=== PATIENT | male | born 1995 | race Caucasian/White ===

== ENCOUNTER 2025-10-31 17:36 | Emergency (ER) | payer OTHER, SELFPAY ==
--- NOTE | ~2025-10-31 | CT_ITS ---
EXAMINATION: CT abdomen pelvis wo con DATE: 10/31/2025 20:58 INDICATION: Kidney stone. TECHNIQUE: Computed tomography (CT) of the abdomen and pelvis was performed without intravenous contrast. Automated exposure control and iterative reconstruction technique were employed. The dose-length product was 190.28 mGy-cm. COMPARISON: None. FINDINGS: The visualized portions of the lung bases demonstrate mild atelectasis in right middle lobe. No pleural effusion. The heart size is normal. No pericardial effusion. There is a 13 mm mass in right hepatic lobe. The gallbladder, spleen, pancreas, adrenal glands, and kidneys are normal. There is no urolithiasis. There are no dilated loops of bowel. The appendix is not visualized. There is trace pelvic ascites. There is mild thoracic and lumbar spondylosis. IMPRESSION: 1. No urolithiasis. 2. 13 mm liver mass, likely benign given the patient's age. Consider abdomen MRI without and with contrast. Reviewed, dictated and finalized at location E. PRODUCTION MANAGER IMPRESSION: 1. No urolithiasis. 2. 13 mm liver mass, likely benign given the patient's age. Consider abdomen MR I without and with contrast.
[2025-10-31 17:37] VITALS: BP 116/71; PULSE 61; RESP 16; TEMP 36.6; O2SAT 100
[2025-10-31 18:12] LABS: Hematocrit 41.8 % (42.0-52.0); Hemoglobin 14.2 g/dL (14.0-18.0); Immature Granulocyte Percent A 0.2 % (0-0.5); Lymphocytes Absolute Auto 1.25 K/mm3 (0.9-3.2); Mean Corpuscular HGB Conc 34.0 g/dl (32-36); Mean Corpuscular Hemoglobin 31.8 pg (26-34); Mean Corpuscular Volume 93.5 fl (80-100); Nucleated Red Blood Cells Absolute Auto 0.000 K/mm3 (0.0-0.012); Nucleated Red Blood Cells Perc 0.0 % (0.0-0.2); Platelet Count Result 203 k/mm3 (150-375); Red Blood Count 4.47 M/mm3 (4.6-6.20); White Blood Count 4.5 K/mm3 (4.5-10.0)
[2025-10-31 18:37] LABS: Alanine Aminotransferase 19 U/L (6-50); Albumin Level 4.4 g/dL (3.5-5.1); Alkaline Phosphatase 62 U/L (38-126); Anion Gap 6 mmol/L (4-12); Aspartate Amino Transferase 25 U/L (17-59); Bilirubin,Total 0.4 mg/dL (0.2-1.3); Blood Urea Nitrogen 10 mg/dL (9-20); Calcium 8.9 mg/dL (8.4-10.2); Carbon Dioxide 27 mmol/L (22-30); Chloride 105 mmol/L (98-107); Estimated CRCL calculation 94 ml/min; Estimated Glomerular Filt Rate > 60; Glucose 75 mg/dL (65-110); Potassium 4.1 mmol/L (3.4-5.0); Sodium 138 mmol/L (137-145); Total Protein 7.3 g/dL (6.3-8.2)
[2025-10-31 18:47] LABS: Add Urine Microscopic? YES; Appearance Urine Clear (Clear); Glucose Urine UA Negative (Negative); Leukocyte Esterase Ur Negative LEU/UL (Negative); Nitrate Urine Negative (Negative); Specific Grav Ur 1.032 (1.001-1.035)
--- NOTE | 2025-10-31 18:47 | PC.NURSE ---
Pt found vaping in room. Room smells of marijuana.
[2025-10-31 18:48] LABS: Need Manual Microscopic Reviewed
[2025-10-31 18:50] LABS: Non Pathogenic Casts 0-2
--- NOTE | 2025-10-31 20:29 | ED_ITS ---
HPI - Male Genitourinary General Chief complaint: Urogenital-Male Stated complaint: hematuria, body aches, dry heaving Time Seen by Provider: 10/31/25 19:26 History of Present Illness HPI Narrative: Patient is a 30 year male who presents to the ER with a 4 day history of bilateral back pain, lower abdominal pain (pulling sensation), nausea, dry heaving, diarrhea and hematuria. He reports on October 27 he noticed blood in his urine. Since then patient reports he started experiencing the other symptoms listed above. Patient denies any recent fevers, penile discharge, headache, congestion. He denies any history kidney stones, recent alcohol use, drug use. Patient reports he does not drink much water and drinks a lot of soda. He denies any other medical history relevant to this ER visit. Related Data Allergies Allergy/AdvReac Type Severity Reaction Status Date / Time No Known Allergies Allergy Verified 10/31/25 17:58 Review of Systems 2 Review of Systems: All systems reviewed & are unremarkable except as noted in HPI and below Exam 2 Narrative: GENERAL: Well appearing, well-nourished, non-toxic, in no acute distress. HEAD: Normocephalic, atraumatic. NECK: Supple. No adenopathy, no masses. RESPIRATORY: Airway patent, respirations nonlabored. Clear to auscultation bilaterally, no rales, rhonchi, wheezing. CARDIOVASCULAR: Regular rate and rhythm without murmurs, rubs, or gallops. Peripheral pulses 2+ and equal bilaterally. Positive CVA tenderness left side ABDOMINAL: Soft, nontender, nondistended, no hepatosplenomegaly. Normoactive BS. MUSCULOSKELETAL: Moves all extremities. Strength/ROM intact without gross deformities. SKIN: Warm, dry, normal color. No rashes. NEURO: A&O X3. Speech clear. Cranial nerves II-XII intact. No ataxic movements. PSYCHIATRIC: Appropriate mood and affect. Normal interaction. Course Vital Signs Vital signs: Vital Signs Temperature 36.6 C 10/31/25 17:37 Pulse Rate 61 10/31/25 17:37 Respiratory Rate 16 10/31/25 17:37 Blood Pressure 116/71 10/31/25 17:37 Pulse Oximetry 100 10/31/25 17:37 Oxygen Delivery Room Air 10/31/25 17:37 Temperature 36.6 C 10/31/25 17:37 Pulse Rate 72 10/31/25 22:53 Respiratory Rate 18 10/31/25 22:53 Blood Pressure 122/78 10/31/25 22:53 Pulse Oximetry 100 10/31/25 22:53 Oxygen Delivery Room Air 10/31/25 17:37 [facility] Narrative Medical decision making narrative: Patient is a 30 year male who presents to the ER with a 4 day history of bilateral back pain, lower abdominal pain (pulling sensation), nausea, dry heaving, diarrhea and hematuria. He reports on October 27 he noticed blood in his urine. Since then patient reports he started experiencing the other symptoms listed above. Patient denies any recent fevers, penile discharge, headache, congestion. He denies any history kidney stones, recent alcohol use, drug use. Patient reports he does not drink much water and drinks a lot of soda. He denies any other medical history relevant to this ER visit. Labs Ordered: CBC, CMP, UA, UDS Imaging Ordered: CT abdomen pelvis Medications Ordered: morphine 4 mg IV, 1 L normal saline IV bolus, Toradol 15mg IV Results: patient's CT scan indicates accounting for mild respiratory artifact, no nephrolithiasis or hydronephrosis. No definite ureteral stones. The bladder is predominantly decompressed without evidence for bladder stones or bladder wall thickening. No bowel obstruction. No free intraperitoneal fluid or pneumoperitoneum. The appendix is not clearly delineated. The unenhanced liver, gallbladder, pancreas, spleen and adrenal glands are unremarkable. Diagnosis: renal colic, hematuria Consults: urology (outpatient) Patient Education/Shared MDM: Results of lab work and imaging shared with patient. He endorses improvement of symptoms following medication administration. Patient strongly advised to maintain hydration status upon discharge and follow-up with his PCP as soon as possible. If his hematuria returns he should follow-up with Urology. He will not be discharged home with any new prescriptions, but advised to take Tylenol and/or Ibuprofen for pain control. Strict return precautions provided. Patient verbalized understanding and is in agreement with plan. Vital signs stable at time of discharge. All questions answered. Differential Diagnosis Differential Diagnosis: Kidney stone, constipation, hematuria, UTI Lab Data [facility] Lab Attestation statement: I personally reviewed the patient's lab results. 10/31/25 18:01 10/31/25 18:01 Labs: Lab Results 10/31/25 10/31/25 Range/Units 18:00 18:01 WBC 4.5 (4.5-10.0) K/mm3 RBC 4.47 L (4.6-6.20) M/mm3 Hgb 14.2 (14.0-18.0) g/dL Hct 41.8 L (42.0-52.0) % MCV 93.5 (80-100) fl MCH 31.8 (26-34) pg MCHC 34.0 (32-36) g/dl RDW 13.2 (11.5-14.5) % Plt Count 203 (150-375) k/mm3 MPV 9.9 (7.4-10.4) fl Immature Gran % (Auto) 0.2 (0-0.5) % Neut % (Auto) 55.7 (45.5-73.1) % Lymph % (Auto) 28.0 (18.3-44.2) % Young % (Auto) 15.0 H (2.6-8.5) % Eos % (Auto) 0.7 (0-4.4) % Baso % (Auto) 0.4 (0.2-1.2) % Lymph # (Auto) 1.25 (0.9-3.2) K/mm3 Young # (Auto) 0.7 H (0.1-0.6) K/mm3 Eos # (Auto) 0.0 (0-0.3) K/mm3 Baso # (Auto) 0.0 (0.0-0.1) K/mm3 Abs Immat Gran (auto) 0.01 (0.00-0.031) K/mm3 Absolute Neuts (auto) 2.5 (1.3-6.7) K/mm3 Absolute Nucleated RBC 0.000 (0.0-0.012) K/mm3 Nucleated RBC % 0.0 (0.0-0.2) % Sodium 138 (137-145) mmol/L Potassium 4.1 (3.4-5.0) mmol/L Chloride 105 (98-107) mmol/L Carbon Dioxide 27 (22-30) mmol/L Anion Gap 6 (4-12) mmol/L BUN 10 (9-20) mg/dL Creatinine 0.92 (0.7-1.3) mg/dL Estim Creat Clear Calc 94 ml/min Estimated GFR > 60 (59 - ) Glucose 75 (65-110) mg/dL Calcium 8.9 (8.4-10.2) mg/dL Total Bilirubin 0.4 (0.2-1.3) mg/dL AST 25 (17-59) U/L ALT 19 (6-50) U/L Alkaline Phosphatase 62 (38-126) U/L Total Protein 7.3 (6.3-8.2) g/dL Albumin 4.4 (3.5-5.1) g/dL Urine Color Yellow (Yellow) Urine Appearance Clear (Clear) Urine pH 5.5 (5.0-9.0) Ur Specific [place] 1.032 (1.001-1.035) Urine Protein Trace (Negative) mg/dL Urine Glucose (UA) Negative (Negative) mg/dL Urine Ketones Trace H (Negative) mg/dL Ur Blood (Man) Negative (Negative) Urine Nitrate Negative (Negative) Urine Bilirubin Negative (Negative) Urine Urobilinogen 1.0 (<2.0) mg/dL Add Ur Microanalysis Reviewed Leukocyte Esterase Rfl Negative (Negative) V[place]AS[place]Z/UL Urine RBC 0-2 (0-2) /hpf Urine WBC 0-5 (0-3) /hpf Ur Squamous Epith Cells None seen (Few) /hpf Calcium Oxalate Crystal Present (None) /hpf Urine Bacteria None seen /hpf Urine Casts 0-2 Urine Opiates Screen Negative (Negative) Urine Methadone Screen Negative (Negative) Ur Barbiturates Screen Negative (Negative) Ur Phencyclidine Scrn Negative (Negative) Ur Amphetamine Screen Negative (Negative) U Benzodiazepines Scrn Negative (Negative) Urine Cocaine Screen Negative (Negative) U Cannabinoids Screen Positive A (Negative) Imaging Data Attestation: I personally reviewed and interpreted this imaging study as follows: Radiologist's impression: Patient's CT scan indicates accounting for mild respiratory artifact, no nephrolithiasis or hydronephrosis. No definite ureteral stones. The bladder is predominantly decompressed without evidence for bladder stones or bladder wall thickening. No bowel obstruction. No free intraperitoneal fluid or pneumoperitoneum. The appendix is not clearly delineated. The unenhanced liver, gallbladder, pancreas, spleen and adrenal glands are unremarkable. Discharge Plan Discharge Clinical Impression: Hematuria, Renal colic, Flank pain, bilateral Patient Disposition: Home Condition: Stable Instructions: Antibiotic Form, Hematuria (ED) Additional Instructions: Please return to the ER with any worsening symptoms. Follow-up with primary care provider as soon as possible for further evaluation. If the blood in your urine returns please follow-up with Urology. You may take Tylenol 1 g, and/ or ibuprofen 800 mg every 8 hours for pain control. Patient Language: [place] Follow-up/Referrals: Osmar Caldwell MD [Physician, Urology] PHYSICIAN,DIRECTOR OF FOOD AND BEVERAGE SERVICES [Primary Care Provider, Internal Medicine] Stand Alone Forms: Work/School Release IP Time of Disposition: 23:13
[2025-10-31] MEDS: SODIUM CHLORIDE 0.9% IV 1,000 ML 999 ML IV CONT (20:45)
[2025-10-31] MEDS: MORPHINE SULFATE (*CRX) 4 MG/ML INJ IV PUSH (20:46)
[2025-10-31 21:26] LABS: Cannabinoid Screen Urine Positive (Negative)
[2025-10-31 22:53] VITALS: BP 122/78; PULSE 72; RESP 18; O2SAT 100
[2025-10-31] MEDS: KETOROLAC 15 MG/ML VIAL (*BKC) IV PUSH (23:22)
[2025-10-31 23:27] VITALS: BP 116/66; PULSE 58; RESP 18; O2SAT 100
== END 2025-10-31 23:29 | disposition home or self-care (01) ==
PROVIDERS: Emergency Medicine; Emergency Provider Registered Nurse
DX: N23 Unspecified renal colic (principal); R31.9 Hematuria, unspecified; R16.0 Hepatomegaly, not elsewhere classified
CPT/HCPCS: 36415; 74176; 80053; 80307; 81001; 85025; 96361; 96374; 96375; 99284; J1885; J2270; J7030